=== PATIENT | female | born 1950 | race African-American/Black ===

== ENCOUNTER 2016-06-23 09:20 | Emergency (ER) | payer OTHER ==
--- NOTE | 2016-06-23 10:06 | PROVIDER DOCUMENTATION ---
HPI-Musculoskeletal Pain/Inj - GENERAL Chief Complaint: Flank Pain Stated Complaint: BACK/FLANK PAIN Time Seen by Provider: 06/23/16 09:30 Source: patient - HX OF PRESENT ILLNESS-MUSKULOSKELTAL Nature of Presenting Problem: patient is a 65 y/o F that presents to the ER with bilateral lower back pain that radiates to bilateral flank, denies injury. Woke up with pain 3 day ago, pain has gotten better. She denies fever/chills, dysuria, or n/v/d. Quality of Pain: reports: dull Severity in ED: mild Onset/Duration: gradual, 3 days ago Timing: still present, improving Modifying Factors: worse with: movement Locality of Occurance: Home Similar Symptoms Previously?: No Recently seen or treated by another doctor?: No - BACK & NECK PAIN/INJURY Back/Neck Pain Location: reports: lumbar spine (bilateral lower) Back/Neck Pain Radiation: reports: Other (bilateral flank) Context / Method of Injury: reports: unknown Associated Symptoms: reports: lower back pain. denies: loss of bladder control , loss of bowel control, fever, muscle spasms, weakness in legs/feet, weakness in upper ext History of Chronic Neck or Back Pain?: No Review of Systems - Adult - REVIEW OF SYSTEMS - ADULT Constitutional: denies: chills, fever Eyes: denies: decreased vision, blurred vision, double vision Ears, Nose, Mouth & Throat: denies: ear pain, sinus problem, throat pain, throat swelling Cardiovascular: denies: chest pain, palpitations, syncope Respiratory: denies: cough, shortness of breath, wheezing Gastrointestinal: denies: abdominal pain, diarrhea, nausea, vomiting Genitourinary: reports: flank pain (bilateral). denies: dysuria, frequency, hematuria Musculoskeletal: reports: back pain. denies: joint pain, neck pain Integumentary: reports: no symptoms reported Neurological: reports: no symptoms reported Psychiatric: reports: no symptoms reported Endocrine: reports: no symptoms reported Hematologic/Lymphatic: reports: no symptoms reported Allergic/Immunologic: reports: no symptoms reported All Other Systems: Reviewed and Negative Past History - Adult - PAST MEDICAL HISTORY-ADULT Review of Records: reports: Old Records Reviewed, Nursing Assessment Review, Medications Reviewed Cardiovascular: reports: CHF, HTN Respiratory: reports: asthma, COPD Gastrointestinal: reports: GERD, other (on prilosec ) Musculoskeletal: reports: chronic pain (knees) Endocrine/Immune: reports: Diabetes - PRIOR SURGERIES/PROCEDURES Surgical/Procedure History: reports: hysterectomy, joint replacement (Total knee replacement) - PRIOR HOSPITALIZATIONS Prior Hospitalizations: reports: for other non-related - IMMUNIZATION STATUS Childhood Immunizations: See Nurse Assessment Flu Vaccine: See Nurse Assessment - FAMILY HISTORY Family History: reviewed, not pertinent - SOCIAL HISTORY Smoking: quit greater than 1 year, cigarettes Living Situation: family Physical Exam-Injury Related - Physical Exam-Injury Related Initial Vital Signs Reviewed: Yes General Appearance: alert, no apparent distress Eyes: PERRL/EOMI, pink conjunctivae Head, Ears, Nose, Mouth & Throat: normocephalic/atraumatic, moist mucous membranes, normal ENT inspection, pharynx normal Neck: non-tender, full range of motion, normal inspection Respiratory: lungs clear, normal breath sounds, no respiratory distress, no accessory muscle use Cardiovascular: regular rate, rhythm, no edema, no murmur Abdominal Exam: normal bowel sounds, non tender, soft, no organomegaly, no pulsatile mass Back Exam: no CVA tenderness, muscle spasm (bilateral lower lumbar). negative: swelling, vertebral tenderness Extremity: normal range of motion, normal inspection, no pedal edema, no calf tenderness, normal capillary refill, pelvis stable Integumentary: normal color, warm/dry Neurologic: grossly normal, no motor/sensory deficits Psych/Mental Status: normal mood/affect, normal thought content, normal thought process, oriented x 3 Progress - PLAN OF CARE/RESULTS Progress/Plan/Lab Results: plan of care-UA Ct Renal Stone Search report as follows: no GB or uterus, constipation, diverticulosis, nml appendix, no hydro, ? renal and/or ureteral calcifications vs vascular calcifications but no hydro. 4.x17 mm dense object(FB?) ascending colon Vital Signs Temp Pulse Resp BP Pulse Ox 06/23/16 09:45 98 F 94 H 18 132/85 96 No Known Allergies Allergy (Verified 12/01/15 09:16) Amlodipine [Norvasc] 5 mg PO HS 07/08/15 Dicyclomine [Bentyl] 10 mg PO AC + HS #10 capsule 07/08/15 Furosemide [Lasix] 40 mg PO QAM 07/08/15 Glimepiride [Amaryl] 2 mg PO QAM 07/08/15 Metformin E.r. [Glucophage Xr] 750 mg PO BID 07/08/15 Pantoprazole [Protonix] 40 mg PO DAILY@0700 07/08/15 Potassium Chloride [Klor-Con M20] 20 meq PO QAM 07/08/15 Albuterol Sulfate Inhaler [Ventolin Hfa] 2 puff INH Q6H PRN PRN #1 inhaler 11/23 Amoxicillin [Amoxil] 500 mg PO BID #10 capsule 12/01/15 Guaifenesin/D-Methorphan Hb/PE [Deconex Dmx Tablet] 1 each PO TID #30 tablet Dietary Diet NPO Start WedJun 23 101 Laboratory 06/23/16 06/23/16 06/23/16 10:45 10:45 10:08 WBC 8.30 RBC 4.79 Hgb 11.7 L Hct 37.9 MCV 79.1 L MCH 24.4 L MCHC 30.9 L RDW Std Deviation 15.1 H Plt Count 330 MPV 9.8 Immature Gran % (Auto) 0.2 Neut % (Auto) 69.1 Lymph % (Auto) 22.8 [place] % (Auto) 6.3 Eos % (Auto) 1.4 Baso % (Auto) 0.2 Immature Gran # (Auto) 0.02 Neut # (Auto) 5.73 Lymph # (Auto) 1.89 [place] # (Auto) 0.52 Eos # (Auto) 0.12 Baso # (Auto) 0.02 Sodium 137 Potassium 3.5 Chloride 102 Carbon Dioxide 26 Anion Gap 10 BUN 14 Creatinine 0.8 Estimated GFR/1.73 m2 > 60 BUN/Creatinine Ratio 18 Glucose 247 H Calculated Osmolality 283 Calcium 9.3 Total Bilirubin 0.20 AST 12 ALT 9 L Alkaline Phosphatase 117 H Total Protein 7.3 Albumin 3.7 Globulin 4.0 Albumin/Globulin Ratio 1.0 Amylase 49 Lipase 26 Urine Source CLEAN CATCH Urine Color YELLOW Urine Clarity CLEAR Urine pH 5.0 Ur Specific [place] 1.020 Urine Protein TRACE A Urine Ketones NEGATIVE Urine Blood NEGATIVE Urine Nitrite NEGATIVE Urine Bilirubin NEGATIVE Urine Urobilinogen NORMAL Urine Microscopic RBC Not Reportable Urine WBC NEGATIVE Urine Microscopic WBC <10 Ur Epithelial Cells <10 Urine Bacteria 1+ Urine Glucose NEGATIVE Orders Category Date Time Status Saline Loc DIRECTED Care 06/23/16 10:11 Active NPO Diet 06/23/16 10:11 Active RENAL STONE SEARCH [CT] Stat Exams 06/23/16 10:10 Completed AMYLASE [CHEM] Stat Lab 06/23/16 10:45 Completed CBC WITH ELECTRONIC DIFF [HEME] Stat Lab 06/23/16 10:45 Completed COMPREHENSIVE METABOLIC PANEL [CHEM] Stat Lab 06/23/16 10:45 Completed LIPASE [CHEM] Stat Lab 06/23/16 10:45 Completed UA [URINALYSIS PL] [URINALYSIS] Stat Lab 06/23/16 10:08 Completed URINE MICROSCOPIC [URINALYSIS] Stat Lab 06/23/16 10:08 Completed pt will be d/c home f/u with pcp, rx given, pt was clinically stable, pt understood results and instructions. - CT/MRI 1 CT Study: Renal Stone Impression: Abnormal CT Results: see progress note for complete report Departure - Departure Time of Disposition Order: 11:30 DIAGNOSIS: Back pain, Flank pain Disposition: HOME 01 Certified Medical Emergency: Emergent Condition: Stable Additional Instructions: ED Follow Up Instructions: You have been treated by a care provider in the Emergency Department. These instructions are being provided to you so you can have an understanding of how to care for yourself upon discharge. Upon discharge from the Emergency Department, you are responsible for making arrangements for follow-up care by a physician of your choice. Take all prescribed medications as directed. Return to the Emergency Department immediately for any new or worsening symptoms. You may call the Physician Referral phone number at [phone] to obtain a list of Physicians who are taking new patients. Referrals: Adis Kim MD [Primary Care Provider] - Call for Appoint. 1-2days Instructions: Flank Pain, [id number], Back Exercises, Back Pain, Adult Attestation - Scribe Verification/Attestation Scribe:: Vinnie Curry Acting as Scribe for:: Magali Llanes Scribe documention review:: This chart was documented by a scribe and accurately reflects the service the provider performed and the decisions made by the provider. Physician Attestation - Physician Attestation I, the provider, attest to the following statement:: Magali Llanes Physician documentation Attestation:: This documentation recorded by the scribe accurately reflects the service I personally performed and the decisions made by me.
[2016-06-23 10:18] LABS: URINE SOURCE CLEAN CATCH
[2016-06-23 10:28] LABS: BILIRUBIN URINE NEGATIVE (NEGATIVE); BLOOD URINE NEGATIVE (NEGATIVE); CLARITY CLEAR (CLEAR); COLOR YELLOW; GLUCOSE URINE NEGATIVE (NEGATIVE); LEUKOCYTES URINE NEGATIVE (NEGATIVE); NITRITE URINE NEGATIVE (NEGATIVE); PROTEIN URINE TRACE mg/dL (NEGATIVE); URINE MICROSCOPIC NEEDED? YES; UROBILINOGEN URINE NORMAL
[2016-06-23 10:35] LABS: URINE EPITHELIAL CELLS <10 /HPF (<10); URINE WBC <10 /HPF (<10)
[2016-06-23 10:57] LABS: MANUAL DIFF NEEDED? NO
[2016-06-23 10:59] LABS: BASO% 0.2 % (0.0-0.8); EOS# 0.12 X1000 (0.0-0.7); EOS% 1.4 % (0.0-10.0); HEMATOCRIT 37.9 % (37.0-47.0); HEMOGLOBIN 11.7 g/dL (12.0-16.0); IMM GRAN# 0.02 X1000 (0.0-0.04); IMM GRAN% 0.2 % (0.0-0.5); LYMPH# 1.89 X1000 (1.2-3.4); LYMPH% 22.8 % (20.5-51.1); MCH 24.4 PG (27-31); MCHC 30.9 g/dL (33-37); MCV 79.1 FL (81-99); MONO# 0.52 X1000 (0.11-0.59); MONO% 6.3 % (1.7-9.3); MPV 9.8 FL (7.4-10.4); NEUT% 69.1 % (42.2-75.2); PLT 330 X1000 (130-400); RBC 4.79 XMIL (4.2-5.4)
--- NOTE | 2016-06-23 11:04 | Diag Imaging Result Document ---
PROCEDURE NAME: RENAL STONE SEARCH - 06/23/2016 CT ABDOMEN AND PELVIS WITHOUT ORAL OR INTRAVENOUS CONTRAST. DOSE REDUCTION PROTOCOL: FINDINGS: Normal spleen. The gallbladder has been removed. No focal hepatic abnormality identified on this noncontrasted exam. No inflammation about the pancreas. Normal adrenal glands. There is a hypodense left renal lesion believed to be a cyst. There are right renal calcifications believed to be vasculature. No left renal stones. No hydronephrosis to either ureter. There are multiple pelvic calcifications. It is difficult to tell if these are phleboliths or ureteral stones. If any of these lie within the ureters they are nonobstructing. Prominent atherosclerotic calcifications. No aneurysmal dilatation to the aorta. No bowel obstruction. Normal appendix. No abscess. There is a 4 x 17 mm dense area within the ascending colon which may be a foreign body. No adjacent inflammation. There are scattered diverticula throughout the colon. Stool is present throughout the colon. No free air. The urinary bladder is not distended. The uterus has been removed. No pelvic mass. IMPRESSION: 1. No hydronephrosis. Questionable renal and ureteral stones versus vascular calcifications. 2. Constipation. 3. Diverticulosis. 4. Cholecystectomy. 5. Hysterectomy. 6. Possible FB within the ascending colon. A preliminary report was given at 10:31 p.m. [facility]
[2016-06-23 11:24] LABS: AGAP 10; ALBUMIN 3.7 g/dL (3.5-5.0); ALKALINE PHOSPHATASE 117 U/L (32-104); AMYLASE 49 U/L (20-200); BUN 14 mg/dL (8-22); CALCIUM 9.3 mg/dL (8.8-10.2); CHLORIDE 102 mmol/L (98-107); COSMO 283; GOT 12 U/L (10-30); GPT 9 U/L (10-36); LIPASE 26 U/L (13-60); POTASSIUM 3.5 mmol/L (3.5-5.1); SODIUM 137 mmol/L (136-145); TCO2 26 mmol/L (25-35); TOTAL PROTEIN 7.3 g/dL (6.3-8.3)
[2016-06-23 12:04] VITALS: BP 142/79
== END 2016-06-23 12:10 | disposition home or self-care (01) ==
LOC: P.ED 09:20
DX: M54.5 Low back pain (principal); R10.9 Unspecified abdominal pain; K59.00 Constipation, unspecified; K57.90 Diverticulosis of intestine, part unspecified, without perforation or abscess without bleeding; M62.830 Muscle spasm of back; J44.9 Chronic obstructive pulmonary disease, unspecified; G89.29 Other chronic pain; M25.562 Pain in left knee; M25.561 Pain in right knee; E11.9 Type 2 diabetes mellitus without complications; Z96.659 Presence of unspecified artificial knee joint; Z87.891 Personal history of nicotine dependence
CPT/HCPCS: 74176; 80053; 81001; 82150; 83690; 85025